=== PATIENT | female | born 1955 | race Two or more races ===

== ENCOUNTER 2019-12-10 20:38 | Emergency (ER) | payer OTHER ==
[~2019-12-10] VITALS: Ht 170.2 cm; Wt 108.9 kg
[2019-12-10] MEDS ORDERED: HEARTBURN RELIE75 MG (21:14)
[2019-12-10] MEDS ORDERED: SIMVASTATIN5 MG PO (21:14)
[2019-12-10] MEDS ORDERED: DITROPAN XL10 MG (21:15)
== END 2019-12-11 00:08 | disposition home or self-care (01) ==
LOC: ER 20:38
DX: S52.591A Other fractures of lower end of right radius, initial encounter for closed fracture (principal); W18.39XA Other fall on same level, initial encounter; Y93.89 Activity, other specified; Y92.098 Other place in other non-institutional residence as the place of occurrence of the external cause; Y99.8 Other external cause status